=== PATIENT | female | born 1980 | race African-American/Black ===

== ENCOUNTER 2017-01-25 22:04 | Emergency (ER) | payer SELFPAY ==
[~2017-01-25] VITALS: Ht 165.1 cm; Wt 99.8 kg
[2017-01-25] MEDS ORDERED: ONDANSETRON PF 4 MG/2 ML VIAL. IV ONE (23:00)
[2017-01-25] MEDS ORDERED: IOHEXOL 300 MG/ML 75 ML VIAL. IV ONE (23:00)
[2017-01-25] MEDS ORDERED: HYDROmorphone PF 1 MG/ML DISP.SYRIN IV ONE (23:00)
[2017-01-25] MEDS ORDERED: IV NORMAL SALINE 1,000ML 1,000 ML IV ONE (23:00)
[2017-01-25] MEDS ORDERED: KETOROLAC 30 MG/ML VIAL. IV ONE (23:00)
[2017-01-25 23:27] LABS: BASO % 0 % (0-3); EOS # 0.2 x10^3/uL (0.0-0.7); EOS % 4 % (0-3); HEMATOCRIT 34.7 % (36.0-47.0); HEMOGLOBIN 11.7 g/dL (12.0-15.5); LYMPH # 1.8 x10^3/uL (1.0-4.8); LYMPH % 27 % (24-48); MEAN CORPUSCULAR HEMOGLOBIN 31 pg (25-35); MEAN CORPUSCULAR HGB CONC 34 g/dL (31-37); MEAN CORPUSCULAR VOLUME 92 fL (79-100); MONO # 0.4 x10^3/uL (0.0-1.1); MONO % 7 % (0-9); NEUT % 62 % (31-73); PLATELET COUNT 235 x10^3/uL (140-400); RED BLOOD COUNT 3.79 x10^6/uL (3.50-5.40); RED CELL DISTRIBUTION WIDTH 15.9 % (11.5-14.5); WHITE BLOOD COUNT 6.5 x10^3/uL (4.0-11.0)
[2017-01-25 23:37] LABS: ALBUMIN 3.4 g/dL (3.4-5.0); ALBUMIN/GLOBULIN RATIO 0.9 (1.0-1.7); CALCIUM 8.5 mg/dL (8.5-10.1); CREATININE 0.8 mg/dL (0.6-1.0); GFR 98.2; POTASSIUM 3.9 mmol/L (3.5-5.1); TOTAL BILIRUBIN 0.2 mg/dL (0.2-1.0); TOTAL PROTEIN 7.4 g/dL (6.4-8.2)
--- NOTE | 2017-01-25 23:44 | RAD ---
INDICATION: [id number] Abdominal and rectal pain. Hx of . No previous exams for comparison. COMPARISON: None. TECHNIQUE: Axial CT images were obtained through the abdomen and pelvis with intravenous contrast. One or more of the following individualized dose reduction techniques were utilized for this examination: 1. Automated exposure control; 2. Adjustment of the mA and/or kV according to patient size; 3. Use of iterative reconstruction technique. FINDINGS: Chest Base: Partially imaged without gross abnormality. Vessels: No abdominal aortic aneurysm. Liver/Biliary: No intrahepatic biliary duct dilation. Pancreas: No peripancreatic edema. Spleen: Normal. Kidneys/Adrenal: No hydronephrosis. Bladder: No definite adjacent inflammation. GI: Colonic diverticulosis. The appendix does not appear grossly inflamed. No dilated loops of bowel to suggest obstruction. Small fat-containing umbilical hernia. Small ossific density adjacent to left hip joint could be calcification within soft tissues. Degenerative changes spine. Mild sclerosis is seen within the proximal femurs bilaterally. This has a nonspecific appearance with some causes including bone infarct or enchondroma within the differential. IMPRESSION: 1. No evidence of bowel obstruction or appendicitis. 2. No hydronephrosis. Electronically signed by: Carlton Romero MD (01/25/2017 11:41 PM) [facility]
[2017-01-25] MEDS ORDERED: diphenhydrAMINE 50 MG/ML VIAL IV ONE (23:45)
[2017-01-25] MEDS ORDERED: methylPREDNISolone SOD SUCC PF 125 MG/2 ML VIAL. IV ONE (23:45)
[2017-01-25 23:55] LABS: BACTERIA,URINE FEW /HPF (0-FEW); BILIRUBIN,URINE NEG (NEG); CLARITY,URINE CLEAR; COLOR,URINE YELLOW; GLUCOSE,URINE NEG (NEG); NITRITE,URINE NEG (NEG); RBC,URINE 0 /HPF (0-2); SQUAMOUS EPITHELIAL CELL,UR MOD /LPF; UROBILINOGEN,URINE 0.2 mg/dL (0.2 mg/dL); WBC,URINE OCC /HPF (0-4)
[2017-01-26] MEDS ORDERED: FAMO-63 PO (00:09)
[2017-01-26] MEDS ORDERED: TRAM-48 PO (00:09)
[2017-01-26] MEDS ORDERED: DIPH25CA58 PO (00:09)
[2017-01-26] MEDS ORDERED: PRED50TA PO (00:09)
[2017-01-26] MEDS ORDERED: ONDA4TAB10 SL (00:09)
--- NOTE | 2017-01-26 00:09 | PHYS DOC ---
Adult General Chief Complaint Chief Complaint: ABDOMINAL PAIN HPI HPI Patient is a 36-year-old female who presents here today complaining of pain in her midepigastric area and pain to her rectum that started approximately 30 minutes prior to arrival. Patient reports her to the pain beginning she was in her usual state of health. Patient reports she had a normal appetite and ate dinner today without any difficulty. Patient denies any nausea vomiting diarrhea fevers shakes chills cough cold or runny nose. Patient denies any dysuria frequency or urgency. Patient denies any rectal manipulation. Patient denies any history of hemorrhoids in the past. Patient denies being . Patient reports that she was just released from skilled nursing approximately 6 months ago after an 8 year stent. Patient has any hypertension diabetes liver longer kidney problems. Patient has any surgeries. Patient reports she does smoke no alcohol or drugs. Patient reports that she is allergic to Motrin and patient denies any trauma. Patient denies any hemoptysis. Review of systems: Constitutional: Denies fever or chills Eyes: Denies change in visual acuity, redness, or eye pain HENT: Denies nasal congestion or sore throat All other review systems are negative except as documented in the history of present illness portion. Physical exam: Constitutional: Well developed, well nourished, no acute distress, non-toxic appearance. HENT: Normocephalic, atraumatic, bilateral external ears normal, oropharynx moist, no oral exudates, nose normal. Eyes: PERRLA, EOMI, conjunctiva normal, no discharge. Neck: Normal range of motion, no tenderness, supple, no stridor. Cardiovascular:Heart rate regular rhythm, Lungs & Thorax: Bilateral breath sounds clear to auscultation Abdomen: Bowel sounds normal, soft, no tenderness, no masses, no pulsatile masses. Skin: Warm, dry, no erythema, no rash. Back: No tenderness, no CVA tenderness. Extremities: No tenderness, no cyanosis, no clubbing, ROM intact, no edema. Neurologic: Alert and oriented X 3, normal motor function, normal sensory function, no focal deficits noted. Psychologic: Affect normal, judgement normal, mood normal. Rectal exam is unremarkable. There is no fullness. No fluctuance. Patient does have some external skin tags but no evidence of significant hemorrhoids or thrombosed to stem reports. Patient does have tenderness to palpation to her rectal area. There is no evidence of rectal or perirectal abscess. CT scan of the abdomen and pelvis with IV contrast was unremarkable. There is no evidence of bowel obstruction or appendicitis. There is no evidence of hydronephrosis. CBC, CMP, UA were all within normal limits. Assessment and plan Is a 36-year-old female who presents here today complaining of abdominal pain and rectal pain. Patient's ER workup is been unremarkable. Patient normal CBC, CMP, UA, CT scan of the abdomen and pelvis with IV contrast. Etiology of her discomfort is unclear. Patient will be discharged home with pain medicines will be instructed to follow-up with her primary care physician for further evaluation of the pain persists. Family History Family History Patient appears to have some itching after the IV contrast. Patient was given Benadryl and sign Medrol the ED and will be sent home with Benadryl and penicillin 5 days. Current Medications Current Medications Current Medications Medications (Trade) Dose Ordered Sig/Carolyn Start Time Stop Time Status Last Admin Dose Admin Diphenhydramine HCl (Benadryl) 50 mg 1X ONCE 01/25/17 23:45 01/25/17 23:59 DC 01/25/17 23:50 50 MG Hydromorphone HCl (Dilaudid) 1 mg 1X ONCE 01/25/17 23:00 01/25/17 23:01 DC 01/25/17 23:11 1 MG Iohexol (Omnipaque 300 Mg/ml) 75 ml 1X ONCE 01/25/17 23:00 01/25/17 23:01 DC 01/25/17 23:12 75 ML Ketorolac Tromethamine (Toradol) 30 mg 1X ONCE 01/25/17 23:00 01/25/17 23:00 DC Methylprednisolone Sodium Succinate (SOLU-Medrol 125MG VIAL) 125 mg 1X ONCE 01/25/17 23:45 01/25/17 23:59 DC 01/25/17 23:49 125 MG Ondansetron HCl (Zofran) 4 mg 1X ONCE 01/25/17 23:00 01/25/17 23:01 DC 01/25/17 23:08 4 MG Sodium Chloride 1,000 ml @ 1,000 mls/hr 1X ONCE 01/25/17 23:00 01/25/17 23:59 DC 01/25/17 23:32 1,000 MLS/HR Allergies Allergies Allergies Coded Allergies Type Severity Reaction Last Updated Verified ibuprofen Allergy Unknown THROAT SWELLING 01/25/17 Yes Current Patient Data Vital Signs Vital Signs Date Time Temp Pulse Resp B/P (MAP) Pulse Ox O2 Delivery O2 Flow Rate FiO2 01/25/17 23:11 22 98 Lab Results Laboratory Tests Test 01/25/17 22:35 01/25/17 23:00 01/25/17 23:04 Urine Collection Type U cath Urine Color Yellow Urine Clarity Clear Urine pH 7.0 Urine Specific [place] 1.020 Urine Protein Neg (NEG-TRACE) Urine Glucose (UA) Neg mg/dL (NEG) Urine Ketones (Stick) Neg mg/dL (NEG) Urine Blood Neg (NEG) Urine Nitrite Neg (NEG) Urine Bilirubin Neg (NEG) Urine Urobilinogen Dipstick 0.2 mg/dL (0.2 mg/dL) Urine Leukocyte Esterase Neg (NEG) Urine RBC 0 /HPF (0-2) Urine WBC Occ /HPF (0-4) Urine Squamous Epithelial Cells Mod /LPF Urine Bacteria Few /HPF (0-FEW) White Blood Count 6.5 x10^3/uL (4.0-11.0) Red Blood Count 3.79 x10^6/uL (3.50-5.40) Hemoglobin 11.7 g/dL (12.0-15.5) L Hematocrit 34.7 % (36.0-47.0) L Mean Corpuscular Volume 92 fL (79-100) Mean Corpuscular Hemoglobin 31 pg (25-35) Mean Corpuscular Hemoglobin Concent 34 g/dL (31-37) Red Cell Distribution Width 15.9 % (11.5-14.5) H Platelet Count 235 x10^3/uL (140-400) Neutrophils (%) (Auto) 62 % (31-73) Lymphocytes (%) (Auto) 27 % (24-48) Monocytes (%) (Auto) 7 % (0-9) Eosinophils (%) (Auto) 4 % (0-3) H Basophils (%) (Auto) 0 % (0-3) Neutrophils # (Auto) 4.0 x10^3uL (1.8-7.7) Lymphocytes # (Auto) 1.8 x10^3/uL (1.0-4.8) Monocytes # (Auto) 0.4 x10^3/uL (0.0-1.1) Eosinophils # (Auto) 0.2 x10^3/uL (0.0-0.7) Basophils # (Auto) 0.0 x10^3/uL (0.0-0.2) Sodium Level 140 mmol/L (136-145) Potassium Level 3.9 mmol/L (3.5-5.1) Chloride Level 106 mmol/L (98-107) Carbon Dioxide Level 27 mmol/L (21-32) Anion Gap 7 (6-14) Blood Urea Nitrogen 17 mg/dL (7-20) Creatinine 0.8 mg/dL (0.6-1.0) Estimated GFR (Cockcroft-Gault) 98.2 BUN/Creatinine Ratio 21 (6-20) H Glucose Level 76 mg/dL (70-99) Calcium Level 8.5 mg/dL (8.5-10.1) Total Bilirubin 0.2 mg/dL (0.2-1.0) Aspartate Amino Transferase (AST) 21 U/L (15-37) Alanine Aminotransferase (ALT) 25 U/L (14-59) Alkaline Phosphatase 89 U/L (46-116) Total Protein 7.4 g/dL (6.4-8.2) Albumin 3.4 g/dL (3.4-5.0) Albumin/Globulin Ratio 0.9 (1.0-1.7) L Lipase 173 U/L (73-393) POC Urine HCG, Qualitative hcg negative (Negative) EKG EKG [] Radiology/Procedures Radiology/Procedures [] Course & Med Decision Making Course & Med Decision Making Pertinent Labs and Imaging studies reviewed. (See chart for details) [] Dragon Disclaimer Dragon Disclaimer This chart was dictated in whole or in part using Voice Recognition software in a busy, high-work load, and often noisy Emergency Department environment. It may contain unintended and wholly unrecognized errors or omissions. Departure Departure: Impression: Primary Impression: Abdominal pain Additional Impressions: Rectal pain Allergy to contrast media (used for diagnostic x-rays) Disposition: 01 HOME, SELF-CARE Condition: IMPROVED Referrals: PCP,NO (PCP) Patient Instructions: Abdominal Pain (Nonspecific), Drug Allergy, Use of Contrast Media in X-Ray Scripts Tramadol Hcl (ULTRAM) 50 Mg Tablet 50 MG PO PRN Q6HRS Y for PAIN, #20 TAB Prov: RAUL MENDEZ MD 01/26/17 Ondansetron (ZOFRAN ODT) 4 Mg Tab.rapdis 1 TAB SL Q8HRS for NAUSEA, #15 TAB Prov: RAUL MENDEZ MD 01/26/17 Prednisone (PREDNISONE) 50 Mg Tablet 1 TAB PO DAILY, #5 TAB Prov: RAUL MENDEZ MD 01/26/17 Famotidine (PEPCID) 20 Mg Tablet 1 TAB PO BID, #10 TAB 0 Refills Prov: RAUL MENDEZ MD 01/26/17 Diphenhydramine Hcl (BENADRYL) 25 Mg Capsule 2 CAP PO QHS, #20 CAP 2 Refills Prov: RAUL MENDEZ MD 01/26/17 Problem Qualifiers RAUL MENDEZ MD Jan 26, 2017 00:09
[2017-01-26 00:15] VITALS: BP 124/86
== END 2017-01-26 00:18 | disposition home or self-care (01) ==
LOC: ER 22:04
DX: K62.89 Other specified diseases of anus and rectum (principal); R10.13 Epigastric pain; E11.9 Type 2 diabetes mellitus without complications; I10 Essential (primary) hypertension; Z91.041 Radiographic dye allergy status
CPT/HCPCS: 36415; 74177; 80053; 81001; 81025; 83690; 85025; 96361; 96374; 96375; 99285; J1170; J1200; J2405; J2930; Q9967; J7030